=== PATIENT | female | born 1985 | race Caucasian/White ===

== ENCOUNTER 2016-07-02 21:14 | Emergency (ER) | payer SELFPAY ==
[2016-07-02] MEDS ORDERED: KEPPRA1000 M1 PO (21:35)
== END 2016-07-03 00:30 ==
LOC: EDMED 21:14
DX: Z04.41 Encounter for examination and observation following alleged adult rape (principal); G40.909 Epilepsy, unspecified, not intractable, without status epilepticus; Z79.899 Other long term (current) drug therapy; F17.200 Nicotine dependence, unspecified, uncomplicated

== ENCOUNTER 2016-07-03 08:35 | Emergency (ER) | payer SELFPAY ==
[~2016-07-03 08:35] MED LIST: KEPPRA1000 M1 PO
== END 2016-07-03 10:06 | disposition left against medical advice (07) ==
LOC: EDMED 08:35
DX: Z53.21 Procedure and treatment not carried out due to patient leaving prior to being seen by health care provider (principal)